=== PATIENT | male | born 1955 | race Caucasian/White ===

== ENCOUNTER 2021-09-29 17:26 | Inpatient (IN) ==
[2021-09-29] MEDS ORDERED: IOPAMIDOL 100 ML BOTTLE IV ONE (17:27)
[2021-09-29] MEDS ORDERED: 0.9 % SODIUM CHLORIDE 1,000 ML IV ONE (17:48)
[2021-09-29] MEDS ORDERED: ONDANSETRON 4 MG/2 ML VIAL IV ONE ×2 (17:48)
[2021-09-29] MEDS ORDERED: FAMOTIDINE/PF 20 MG/2 ML VIAL IV ONE (17:49)
[2021-09-29 18:18] LABS: POC Calcium, Ionized 1.18 (1.16-1.32); POC Creatinine 0.9 (0.6-1.2); POC Potassium 3.9 (3.3-5.1)
--- NOTE | 2021-09-29 18:58 | Cat Scan Report ---
INDICATION: abd pain COMPARISON: None. TECHNIQUE: Axial images were obtained through the abdomen and pelvis. Sagittally and coronally reformatted images. 80 mL Isovue 370 injected intravenously. Oral contrast material was not administered FINDINGS: Lung bases:Bibasilar atelectasis. No parenchymal consolidation. No pulmonary parenchymal mass There is severe coronary artery calcification Liver:Negative. No focal intrahepatic mass. No focal abnormality. Liver contour is smooth. No evidence for cirrhosis Gallbladder, bilary:No calcified gallstones. No gallbladder wall thickening. No dilated intra or extrahepatic bile ducts. Spleen:No splenomegaly. Normal enhancement of splenic and portal veins. Pancreas:No pancreatic mass. No peripancreatic abnormality Adrenal glands:Negative Kidneys,ureters,bladder:No solid renal mass. No hydronephrosis. No obstructing or nonobstructing calculi. 2.2 cm right renal cyst No hydroureter. No ureteral calculus. No bladder stone. No detectable bladder mass. Gastrointestinal:No detectable colonic mass. There is no diverticulitis. Small bowel is dilated and fluid filled. Well-defined transition point is not identified but findings are consistent with small bowel obstruction. Obstruction is probably in the right lower quadrant. There is no evidence for closed loop obstruction. There is no volvulus or mass. Bowel wall is perfused with normal enhancement. Small bowel is dilated to approximately 2.6 cm Dilated fluid-filled stomach. Appendix: The appendix is negative Vascular:There is calcification of the abdominal aorta. Celiac trunk and superior mesenteric artery are normal. No abdominal aortic aneurysm. Lymphatic:No retroperitoneal or mesenteric adenopathy Mesentery, peritoneum: There is mild free intraperitoneal fluid. No intra-abdominal abscess. No pneumoperitoneum. Reproductive:Prostate is not significantly enlarged Musculoskeletal:Severe degenerative disease at L5-S1. No lumbar compression fractures. Sacrum and pelvis are negative. Hips are negative. No inguinal or anterior abdominal wall hernia IMPRESSION: 1. Mechanical small bowel obstruction with dilated fluid-filled small bowel. Site of obstruction appears to be in the right lower quadrant 2. Small amount of free pelvic fluid 3. Severe coronary artery calcification 4. Degenerative disc disease at L5-S1 The exam was performed using radiation dose optimization techniques including, but not limited to, automated exposure control, adjustment of the mA and/or kV according to patient size and use of iterative reconstruction technique. Interpreted and Authenticated by: Francisco Chandra 09/29/21
[2021-09-29 19:16] LABS: Basophils # (Auto) 0.03 K/mcL (0.00-0.30); Basophils % (Auto) 0.3 % (0.0-2.0); Eosinophils # (Auto) 0.07 K/mcL (0.00-0.70); Eosinophils % (Auto) 0.7 % (0.0-7.0); Hematocrit 43.5 % (40.1-51.0); Hemoglobin 14.3 g/dL (13.7-17.5); Lymphocytes # (Auto) 1.82 K/mcL (1.50-4.80); Lymphocytes % (Auto) 18.5 % (15.5-49.0); Mean Cell Volume 90.8 fL (80.0-100.0); Mean Corpuscular HGB Conc 32.9 g/dL (31.0-36.0); Mean Platelet Volume 9.9 fL (7.4-10.4); Monocytes # (Auto) 0.62 K/mcL (0.10-0.90); Monocytes % (Auto) 6.3 % (1.0-12.0); Neutrophils % (Auto) 74.2 % (38.0-78.0); Platelet Count 381 K/mcL (140-440); RBC 4.79 M/mcL (4.63-6.08); Red Cell Distribution Width 13.8 % (11.5-14.5); WBC 9.8 K/mcL (4.5-11.0)
[2021-09-29 19:37] LABS: ALT/SGPT 10 U/L (<40); AST/SGOT 14 U/L (<40); Albumin 4.1 gm/dL (3.2-5.2); Albumin/Globulin Ratio 1.5 (1.0-2.3); Alkaline Phosphatase 76 U/L (39-117); Bilirubin,Total 0.5 mg/dL (0.1-1.0); Blood Urea Nitrogen 14 mg/dL (8-23); Calcium 9.3 mg/dL (8.6-10.4); Carbon Dioxide 22 mmol/L (22-30); Chloride 101 mmol/L (96-108); Globulin 2.7 gm/dL (2.2-3.7); Glomerular Filtration Rate 87; Glucose 127 mg/dL (70-105)
[2021-09-29] MEDS ORDERED: morphine 2 MG/ML VIAL IV PRN (20:15)
[2021-09-29] MEDS ORDERED: NALOXONE HCL 0.4 MG/ML VIAL IV PRN ×2 (20:15→21:05)
[2021-09-29] MEDS ORDERED: LACTATED RINGERS 1,000 ML IV SCH (20:15)
[2021-09-29] MEDS ORDERED: ONDANSETRON 4 MG/2 ML VIAL IV PRN ×2 (20:15→21:05)
--- NOTE | 2021-09-29 21:22 | General Surgery Consult Note ---
HPI Data of Consult Patient: known to practice within the last 3 years Consult date: 09/29/21 Requesting physician: Darien Mccloud Primary Care Provider: Francisco Singletary DO Consult Narrative Patient Information: Note initiated : 09/29/21 at 9:20 pm Service Date, if different from initiated Date: [] Patient: Diony Dodson 66 y/o M admitted on 09/29/21 for Abdominal Pain. Chief Complaint: [Abdominal Pain] Diony is seen in consultation today after presenting to the ER with a less than 24 hour history of intense at times worsening abdominal pain centered in the central mid to upper abdomen. He has not vomited but has been unable to take in food and has had no bowel function since last night. His only prior abdominal operation was an umbilical hernia repair last year. He denies any known history of Crohns or Ulcerative Colitis. He describes his overall health as good and denies any cardiac or pulmonary issues. He is not on any oral anticoagulants. A CT scan was obtained demonstrating evidence of a SB obstruction with SB distension proximally and decompressed SB distally. Additionally, there was scant gas seen in the colon. No other adverse findings were noted. Chief complaint: Abdominal Pain Reason for consult: Small Bowel Obstruction cc:: CC: Courtney Mac MD Review of Systems All systems: reviewed and no additional remarkable complaints except as stated Constitutional Additional comments: no weight loss, fevers or chills EENT Additional comments: no changes Additional comments: no changes Additional comments: no issues Cardiovascular Additional comments: denies any chest pains or cardiac issues Respiratory Additional comments: no cough or SOB Gastrointestinal Additional comments: see HPI Genitourinary Additional comments: denies hemturia Integumentary Additional comments: no changes Neurological Additional comments: no changes PFSH PFSH All Active Problems (Updated 09/29/21 @ 21:37 by Clement Smith MD) SBO (small bowel obstruction) (Acute) Impacted cerumen of both ears (Acute) URI (upper respiratory infection) (Acute) Ingrown left big toenail (Acute) Umbilical hernia (Acute) Medicare annual wellness visit, initial (Acute) Buttock pain (Acute) Back pain (Acute) Exposure to COVID-19 virus (Acute) BPH w urinary obs/LUTS (Chronic) Hordeolum externum (stye) (Acute) Candidiasis of skin (Chronic) Cause of injury, fall (Chronic) Contusion (Chronic) Pain, joint, shoulder, right (Chronic) Right foot pain (Chronic) Chronic low back pain (Chronic) History of high cholesterol (Chronic) History of psoriasis (Chronic) Arthritis of both hands (Chronic ~2004) Arthritis of back (Chronic ~2004) Psoriasis (Chronic ~1999) History of tobacco use (Chronic) Scar tissue (Chronic) Back injury (Chronic) Joint pain (Chronic) Hyperlipidemia (Chronic ~2012) Hypertension, essential (Chronic ~2012) Muscle pain (Chronic) Arthritis (Chronic) Acid reflux (Chronic) Medical History (Updated 09/29/21 @ 21:37 by Clement Smith MD) Acid reflux Arthritis Arthritis of back (~2004) Arthritis of both hands (~2004) Back injury 1988 Candidiasis of skin Cause of injury, fall Chronic low back pain Contusion Exposure to COVID-19 virus History of high cholesterol History of psoriasis History of tobacco use Discussed with patient risk of recurrence with tobacco use. Hyperlipidemia (~2012) Hypertension, essential (~2012) Impacted cerumen of both ears Ingrown left big toenail Joint pain Medicare annual wellness visit, initial Muscle pain Pain, joint, shoulder, right Psoriasis (~1999) Right foot pain Scar tissue 1988 Back injury scar tissue URI (upper respiratory infection) Surgical History (Updated 06/14/20 @ 13:59 by Yoly Gaxiola CMA) H/O colonoscopy 2008 H/O hemorrhoidectomy (~2009) History of umbilical hernia repair 06/07/2020-open Family History Mother Arthritis Hypertension, essential Heart attack Migraines Sister Arthritis Diabetes Hypertension, essential Father Hypertension, essential Stroke Social History marital status: occupational status: employed alcohol intake frequency: a few times a month substance use type: does not use MEDS/ALLERGIES Home Medications and Allergies Home Medications Medication Instructions Recorded Confirmed Type Psoriasis Relief 1 applic/day TOPICAL DAILY 05/31/20 09/29/21 History cholecalciferol (vitamin D3) 25 25 mcg PO QDAY 05/31/20 09/29/21 History mcg (1,000 unit) capsule (Vitamin D3) halobetasol propionate 0.05 % 1 applic TOPICAL QDAY 05/31/20 09/29/21 History topical cream hydrocodone 5 mg-acetaminophen 325 1 tab PO Q6H PRN #20 tab 06/07/20 09/29/21 Rx mg tablet lisinopril 40 mg tablet 40 mg PO QDAY #90 tab 04/13/21 09/29/21 Rx simvastatin 10 mg tablet 10 mg PO QPM #90 tab 04/13/21 09/29/21 Rx amlodipine 10 mg tablet 10 mg PO QDAY #90 tab 07/12/21 09/29/21 Rx brompheniramine 4 mg-PE 10 5 ml PO Q4H PRN #473 ml 08/03/21 09/29/21 Rx mg-codeine 10 mg/5 mL oral liquid (Poly-Tussin AC) tamsulosin 0.4 mg capsule 0.8 mg PO QHS #180 cap 08/23/21 09/29/21 Rx Allergies Allergy/AdvReac Type Severity Reaction Status Date / Time No Known Drug Allergies Allergy Verified 08/03/21 11:07 Physical Examination Vital Signs Vital signs: Temp Pulse Resp BP Pulse Ox 98.1 F 75 18 132/81 94 09/29/21 17:28 09/29/21 20:43 09/29/21 20:01 09/29/21 20:01 09/29/21 20:43 General physical appearance General physical exam: well developed, well nourished and no distress Eyes Eye exam: normal ocular movement ENT ENT exam: normal pinna and normal nares Head Head exam IM: Present atraumatic, normal inspection and normocephalic Neck Neck exam: trachea midline and no lymphadenopathy Cardiovascular Cardiovascular exam IM: Present normal rate and rhythm and RRR Respiratory Respiratory exam: normal respiratory effort Abdomen Abdomen: Present soft (moderate distension, minimally to non tender, NGT in place no ventral or inguinal hernia noted ); Absent rebound Hernia: Present none Integumentary Integumentary: Present other (normal appearing intact skin ) Neurologic Neurologic: Present other (grossly intact ) Psychiatric Psychiatric: Present oriented to time, oriented to person and oriented to place Results Labs Result diagrams: 09/29/21 18:05 09/29/21 18:05 Labs: Abnormal lab results 09/29/21 09/29/21 Range/Units 18:05 18:13 Glucose 127 H (70-105) mg/dL POC Glucose 130 H (70-105) Diabetes panel 09/29/21 Range/Units 18:05 Sodium 138 (133-145) mmol/L Potassium 4.0 (3.3-5.1) mmol/L Chloride 101 (96-108) mmol/L Carbon Dioxide 22 (22-30) mmol/L BUN 14 (8-23) mg/dL Creatinine 0.9 (0.7-1.2) mg/dL Glucose 127 H (70-105) mg/dL Calcium 9.3 (8.6-10.4) mg/dL AST 14 (<40) U/L ALT 10 (<40) U/L Alkaline Phosphatase 76 (39-117) U/L Total Protein 6.8 (5.9-8.4) gm/dL Albumin 4.1 (3.2-5.2) gm/dL Calcium panel 09/29/21 Range/Units 18:05 Calcium 9.3 (8.6-10.4) mg/dL Albumin 4.1 (3.2-5.2) gm/dL Pituitary panel 09/29/21 Range/Units 18:05 Sodium 138 (133-145) mmol/L Potassium 4.0 (3.3-5.1) mmol/L Chloride 101 (96-108) mmol/L Carbon Dioxide 22 (22-30) mmol/L BUN 14 (8-23) mg/dL Creatinine 0.9 (0.7-1.2) mg/dL Glucose 127 H (70-105) mg/dL Calcium 9.3 (8.6-10.4) mg/dL Adrenal panel 09/29/21 Range/Units 18:05 Sodium 138 (133-145) mmol/L Potassium 4.0 (3.3-5.1) mmol/L Chloride 101 (96-108) mmol/L Carbon Dioxide 22 (22-30) mmol/L BUN 14 (8-23) mg/dL Creatinine 0.9 (0.7-1.2) mg/dL Glucose 127 H (70-105) mg/dL Calcium 9.3 (8.6-10.4) mg/dL Total Bilirubin 0.5 (0.1-1.0) mg/dL AST 14 (<40) U/L ALT 10 (<40) U/L Alkaline Phosphatase 76 (39-117) U/L Total Protein 6.8 (5.9-8.4) gm/dL Albumin 4.1 (3.2-5.2) gm/dL All other labs normal. A/P Assessment and plan (1) SBO (small bowel obstruction): Assessment and plan: Small Bowel Obstruction Presumed adhesion related No indications for urgent operative intervention at this time NGT decompression, IVFs, Bowel Rest with in hospital observation Issues are reviewed and discussed at length including possible need for operative intervention if he worsens or fails to improve over time Status: Acute Time Spent With Patient Time: Total time spent is greater than 50% in coordination of care (as documented) at patient's floor/unit and/or counseling patient:
[2021-09-29] MEDS: HYDROmorphone 0.5 MG/0.5 ML SYRINGE IV PRN (22:09)
[2021-09-29] MEDS: DEXTROSE 5%-1/2NS W/20MEQ KCL 1,000 ML IV SCH (22:10)
[2021-09-29] MEDS: 0.9 % SODIUM CHLORIDE 10 ML SYRINGE IV SCH (22:10)
--- NOTE | 2021-09-30 00:36 | Emergency Department Note ---
HPI General Chief complaint: Abdominal Pain Stated complaint: Abdominal Pain Time Seen by Provider: 09/29/21 17:43 Source: patient Mode of arrival: ambulatory Limitations: no limitations History of Present Illness HPI Narrative: Narrative: 66-year-old male with history of hypertension presents for evaluation of epi gastric abdominal pain, ongoing since last night. He describes this as severe cramping in the epigastrium with no radiation. He does report some neck spasms as well as sharp pain stabbing through him. He has been unable to tolerate p.o. but has not had severe nausea or. He has not had bowel movement since prior to the onset of this. He denies any fever or chills. He denies prior abdominal prather rgeries. Denies dysuria or flank pain. Related Data Home Medications Medication Instructions Recorded Confirmed cholecalciferol (vitamin D3) 25 25 mcg PO QDAY 05/31/20 09/29/21 mcg (1,000 unit) capsule (Vitamin D3) halobetasol propionate 0.05 % 1 applic TOPICAL QDAY 05/31/20 09/29/21 topical cream ibuprofen 400 mg tablet 400 mg PO TID 09/29/21 09/29/21 Previous Rx's Medication Instructions Recorded lisinopril 40 mg tablet 40 mg PO QDAY #90 tab 04/13/21 simvastatin 10 mg tablet 10 mg PO QPM #90 tab 04/13/21 amlodipine 10 mg tablet 10 mg PO QDAY #90 tab 07/12/21 tamsulosin 0.4 mg capsule 0.8 mg PO QHS #180 cap 08/23/21 Allergies Allergy/AdvReac Type Severity Reaction Status Date / Time No Known Drug Allergies Allergy Verified 09/29/21 21:52 Review of Systems ROS ROS Narrative: Narrative: All systems ED: reviewed and negative except as stated. [facility] Narrative Patient History Narrative: Narrative: Medical/Surgical/Family History All Active Problems (Updated 09/30/21 @ 00:36 by Darien Mccloud DO) SBO (small bowel obstruction) (Acute) SBO (small bowel obstruction) (Acute) Impacted cerumen of both ears (Acute) URI (upper respiratory infection) (Acute) Ingrown left big toenail (Acute) Umbilical hernia (Acute) Medicare annual wellness visit, initial (Acute) Buttock pain (Acute) Back pain (Acute) Exposure to COVID-19 virus (Acute) BPH w urinary obs/LUTS (Chronic) Hordeolum externum (stye) (Acute) Candidiasis of skin (Chronic) Cause of injury, fall (Chronic) Contusion (Chronic) Pain, joint, shoulder, right (Chronic) Right foot pain (Chronic) Chronic low back pain (Chronic) History of high cholesterol (Chronic) History of psoriasis (Chronic) Arthritis of both hands (Chronic ~2004) Arthritis of back (Chronic ~2004) Psoriasis (Chronic ~1999) History of tobacco use (Chronic) Scar tissue (Chronic) Back injury (Chronic) Joint pain (Chronic) Hyperlipidemia (Chronic ~2012) Hypertension, essential (Chronic ~2012) Muscle pain (Chronic) Arthritis (Chronic) Acid reflux (Chronic) Medical History Acid reflux Arthritis Arthritis of back (~2004) Arthritis of both hands (~2004) Back injury 1988 Candidiasis of skin Cause of injury, fall Chronic low back pain Contusion Exposure to COVID-19 virus History of high cholesterol History of psoriasis History of tobacco use Discussed with patient risk of recurrence with tobacco use. Hyperlipidemia (~2012) Hypertension, essential (~2012) Impacted cerumen of both ears Ingrown left big toenail Joint pain Medicare annual wellness visit, initial Muscle pain Pain, joint, shoulder, right Psoriasis (~1999) Right foot pain Scar tissue 1988 Back injury scar tissue URI (upper respiratory infection) Surgical History H/O colonoscopy 2008 H/O hemorrhoidectomy (~2009) History of umbilical hernia repair 06/07/2020-open Family History Mother Arthritis Hypertension, essential Heart attack Migraines Sister Arthritis Diabetes Hypertension, essential Father Hypertension, essential Stroke Social History Smoking Status: Former smoker Alcohol Intake Frequency: a few times a month Substance Use: does not use Exam Narrative Narrative: Narrative: General Limitations: no limitations General appearance: Present alert and in no apparent distress Head Head: Present atraumatic and normocephalic Eye Eye: Present normal appearance and EOMI ENT ENT: Present normal exam and mucous membranes moist Neck Neck: Present normal inspection and full ROM Chest Chest: Present normal inspection and symmetric chest wall rise Respiratory Respiratory: Present normal lung sounds bilaterally; Absent respiratory distress Cardiovascular Cardiovascular: Present regular rate and normal rhythm Adbominal Abdominal: Present soft and tenderness (Mild epigastric tenderness with no guarding or rebound.) Extremities Extremities: Present normal inspection and full ROM Neurological Neurological: Present alert, oriented X3 and normal gait Psychiatric Psychiatric: Present normal affect and normal mood Skin Skin: Present warm (WNL), dry and normal color Course Vital Signs Vital signs: Vital Signs Temperature 98.1 F 09/29/21 17:28 Pulse Rate 74 09/29/21 17:28 Respiratory Rate 18 09/29/21 17:28 Blood Pressure 143/88 09/29/21 17:28 Pulse Oximetry (%) 98 09/29/21 17:28 Temperature 96.9 F L 09/29/21 21:03 Pulse Rate 82 09/29/21 21:03 Respiratory Rate 22 09/29/21 21:03 Blood Pressure 164/95 09/29/21 21:03 Pulse Oximetry (%) 92 09/29/21 21:03 MDM MDM Narrative Medical decision making narrative: Narrative: Patient found to have small bowel obstruction, NG tube placed and case discussed with surgery, Dr. Smith who accepts to his service. No clear etiology. Patient does get routine colonoscopies Lab Data Lab results reviewed: Yes I reviewed the patient's lab results. Result diagrams: 09/29/21 18:05 09/29/21 18:05 Labs: Lab Results 09/29/21 09/29/21 09/29/21 Range/Units 18:05 18:05 18:11 WBC 9.8 (4.5-11.0) K/mcL RBC 4.79 (4.63-6.08) M/mcL Hgb 14.3 (13.7-17.5) g/dL Hct 43.5 (40.1-51.0) % POC Hct (41-55) MCV 90.8 (80.0-100.0) fL MCH 29.9 (26.0-34.0) pg MCHC 32.9 (31.0-36.0) g/dL RDW 13.8 (11.5-14.5) % Plt Count 381 (140-440) K/mcL MPV 9.9 (7.4-10.4) fL Neut % (Auto) 74.2 (38.0-78.0) % Lymph % (Auto) 18.5 (15.5-49.0) % Custer % (Auto) 6.3 (1.0-12.0) % Eos % (Auto) 0.7 (0.0-7.0) % Baso % (Auto) 0.3 (0.0-2.0) % Lymph # (Auto) 1.82 (1.50-4.80) K/mcL Custer # (Auto) 0.62 (0.10-0.90) K/mcL Eos # (Auto) 0.07 (0.00-0.70) K/mcL Baso # (Auto) 0.03 (0.00-0.30) K/mcL Absolute Neutrophils 7.29 (1.80-8.00) K/mcL POC Sodium (133-145) Sodium 138 (133-145) mmol/L POC Potassium (3.3-5.1) Potassium 4.0 (3.3-5.1) mmol/L POC Chloride (96-108) Chloride 101 (96-108) mmol/L Carbon Dioxide 22 (22-30) mmol/L POC Total CO2 (22-30) Anion Gap 15.0 (8.0-16.0) POC BUN (6-20) BUN 14 (8-23) mg/dL Creatinine 0.9 (0.7-1.2) mg/dL POC Creatinine (0.6-1.2) GFR Calculation 87 Glucose 127 H (70-105) mg/dL POC Glucose (70-105) Calcium 9.3 (8.6-10.4) mg/dL POC WB Ioniz Calcium (1.16-1.32) Total Bilirubin 0.5 (0.1-1.0) mg/dL AST 14 (<40) U/L ALT 10 (<40) U/L Alkaline Phosphatase 76 (39-117) U/L Total Protein 6.8 (5.9-8.4) gm/dL Albumin 4.1 (3.2-5.2) gm/dL Globulin 2.7 (2.2-3.7) gm/dL Albumin/Globulin Ratio 1.5 (1.0-2.3) Lipase 31 (7-60) U/L POC Troponin I 0.02 (0.02-0.08) 09/29/21 Range/Units 18:13 WBC (4.5-11.0) K/mcL RBC (4.63-6.08) M/mcL Hgb (13.7-17.5) g/dL Hct (40.1-51.0) % POC Hct 44.0 (41-55) MCV (80.0-100.0) fL MCH (26.0-34.0) pg MCHC (31.0-36.0) g/dL RDW (11.5-14.5) % Plt Count (140-440) K/mcL MPV (7.4-10.4) fL Neut % (Auto) (38.0-78.0) % Lymph % (Auto) (15.5-49.0) % Custer % (Auto) (1.0-12.0) % Eos % (Auto) (0.0-7.0) % Baso % (Auto) (0.0-2.0) % Lymph # (Auto) (1.50-4.80) K/mcL Custer # (Auto) (0.10-0.90) K/mcL Eos # (Auto) (0.00-0.70) K/mcL Baso # (Auto) (0.00-0.30) K/mcL Absolute Neutrophils (1.80-8.00) K/mcL POC Sodium 139 (133-145) Sodium (133-145) mmol/L POC Potassium 3.9 (3.3-5.1) Potassium (3.3-5.1) mmol/L POC Chloride 105 (96-108) Chloride (96-108) mmol/L Carbon Dioxide (22-30) mmol/L POC Total CO2 24.0 (22-30) Anion Gap (8.0-16.0) POC BUN 17 (6-20) BUN (8-23) mg/dL Creatinine (0.7-1.2) mg/dL POC Creatinine 0.9 (0.6-1.2) GFR Calculation Glucose (70-105) mg/dL POC Glucose 130 H (70-105) Calcium (8.6-10.4) mg/dL POC WB Ioniz Calcium 1.18 (1.16-1.32) Total Bilirubin (0.1-1.0) mg/dL AST (<40) U/L ALT (<40) U/L Alkaline Phosphatase (39-117) U/L Total Protein (5.9-8.4) gm/dL Albumin (3.2-5.2) gm/dL Globulin (2.2-3.7) gm/dL Albumin/Globulin Ratio (1.0-2.3) Lipase (7-60) U/L POC Troponin I (0.02-0.08) Radiology Data Radiology results reviewed: Yes I reviewed the patient's radiology results. EKG Data EKG #1: EKG attestation: Yes I reviewed and interpreted this EKG. EKG results narrative: Sinus rhythm at a rate of 63. Left axis. QTC 397. Inferior Q waves. No acute ST-T changes. Abnormal but nonacute EKG. Discharge Plan Patient/Caregiver Discharge Instructions Pt seen by HOUSEPERSON/PA only: No Clinical Impression: SBO (small bowel obstruction) Patient Disposition: Xfer As Inpt ([facility]) Discharge Date/Time: 09/29/21 21:03
[2021-09-30] MEDS: HYDROmorphone 0.5 MG/0.5 ML SYRINGE IV PRN ×4 (01:45→21:01)
--- NOTE | 2021-09-30 05:37 | XRay Report ---
INDICATION: NG placement TECHNIQUE: Supine abdomen. COMPARISON: Previous CT scan dated 09/29/2021 FINDINGS:Esophagogastric tube is in the stomach. The tip is curled cephalad into the gastric fundus. IMPRESSION: Esophagogastric tube in the stomach Interpreted and Authenticated by: Francisco Chandra 09/30/21
[2021-09-30] MEDS: DEXTROSE 5%-1/2NS W/20MEQ KCL 1,000 ML IV SCH ×3 (05:56→21:00)
[2021-09-30] MEDS: 0.9 % SODIUM CHLORIDE 10 ML SYRINGE IV SCH ×3 (05:56→21:02)
[2021-09-30 06:56] LABS: Hematocrit 39.3 % (40.1-51.0); Hemoglobin 12.9 g/dL (13.7-17.5); Mean Cell Volume 92.7 fL (80.0-100.0); Mean Corpuscular HGB Conc 32.8 g/dL (31.0-36.0); Mean Platelet Volume 9.8 fL (7.4-10.4); Platelet Count 339 K/mcL (140-440); RBC 4.24 M/mcL (4.63-6.08); Red Cell Distribution Width 13.9 % (11.5-14.5); WBC 9.2 K/mcL (4.5-11.0)
[2021-09-30 07:26] LABS: Blood Urea Nitrogen 13 mg/dL (8-23); Calcium 8.5 mg/dL (8.6-10.4); Carbon Dioxide 23 mmol/L (22-30); Chloride 104 mmol/L (96-108); Glomerular Filtration Rate 91; Glucose 149 mg/dL (70-105)
[2021-09-30] MEDS ORDERED: DOCUSATE SODIUM 100 MG CAPSULE PO SCH (09:00)
[2021-09-30] MEDS: BENZOCAINE 1 SPRAY BOTTLE TOPICAL PRN ×3 (09:26→21:02)
--- NOTE | 2021-09-30 10:34 | General Surgery Progress Note ---
SUBJECTIVE Subjective Patient information: Note initiated : 09/30/21 at 10:31 am Service Date, if different from initiated Date: [] Patient: Diony Dodson 66 y/o M admitted on 09/29/21 for Abdominal Pain. Chief Complaint: [] Constitutional Vitals: Vital Signs Temp Pulse Resp BP Pulse Ox 97.1 F 59 L 16 122/77 94 09/30/21 07:45 09/30/21 07:45 09/30/21 07:45 09/30/21 07:45 09/30/21 07:45 Period Temp Pulse Resp BP Sys/Treviño Pulse Ox Last 24 Hr 96.9 F-98.4 F 59-82 - 122-164/74-106 92-98 Intake and Output 09/29/21 09/30/21 09/30/21 21:59 05:59 13:59 Intake Total 1000 971 Output Total 300 250 825 Balance 700 721 -825 Weight 181 lb 4.8 oz 181 lb 4.8 oz Intake & Output: Intake & Output 09/29/21 09/30/21 09/30/21 21:59 05:59 13:59 Intake Total 1000 971 Output Total 300 250 825 Balance 700 721 -825 Weight 181 lb 4.8 oz 181 lb 4.8 oz Intake: IV 1000 971 Sodium Chloride 0.9% 1,000 ml @ 1000 Wide Open IV BOLUS ONE Rx#: [id number] Dextrose 5%-1/2Ns W/20Meq KCl 1 971 ,000 ml @ 125 mls/hr IV .Q8H CUONG Rx#:[id number] Tube Feeding 0 Output: Gastric Drainage 300 350 Left Nare 300 350 Void Amount 250 200 Urine/Stool Mix 275 Other: Urine Appearance Clear Clear Urine Color Bright Yellow Bright Yellow Stool Color Brown Brown Stool Consistency Normal for Patient Formed Formed # Bowel Movements 0 Exam: Non toxic, NAD, feels better overall with minimal to no pain at rest - has passed some gas this am Respiratory Respiratory exam: Present normal respiratory exam Additional comments: non labored Cardiovascular Cardiovascular exam: Present RRR GI/Abdominal Additional comments: soft and non tender, less distension overall. NGT in place Extremities Exam Additional comments: well perfused A/P Assessment and plan (1) SBO (small bowel obstruction): Assessment and plan: Presumed adhesion related SBO Seems to be improving Check plain films this am to reassess NGT position Continue present mgmt for now - anticipate SBFT on Saturday Status: Acute Time Spent With Patient Time: Total time spent is greater than 50% in coordination of care (as documented) at patient's floor/unit and/or counseling patient:
--- NOTE | 2021-09-30 11:10 | XRay Report ---
INDICATION: eval NGT position TECHNIQUE: Supine abdomen. COMPARISON: Previous examination dated 09/29/2021 FINDINGS:Esophagogastric tube with its tip in the gastric fundus. Configuration is slightly changed although the position is probably unchanged. There is gas within the colon. No dilated gas-filled small bowel. No biliary or portal venous gas. No pneumoperitoneum IMPRESSION: Esophagogastric tube remains in the stomach Interpreted and Authenticated by: Francisco Chandra 09/30/21
[2021-09-30] MEDS ORDERED: SENNOSIDES 1 TABLET PO SCH (21:00)
[2021-10-01] MEDS: HYDROmorphone 0.5 MG/0.5 ML SYRINGE IV PRN ×2 (01:10→05:45)
[2021-10-01] MEDS: DEXTROSE 5%-1/2NS W/20MEQ KCL 1,000 ML IV SCH ×3 (04:17→19:42)
[2021-10-01] MEDS: 0.9 % SODIUM CHLORIDE 10 ML SYRINGE IV SCH ×3 (04:18→21:17)
[2021-10-01 06:04] LABS: Hematocrit 38.8 % (40.1-51.0); Hemoglobin 12.9 g/dL (13.7-17.5); Mean Cell Volume 91.3 fL (80.0-100.0); Mean Corpuscular HGB Conc 33.2 g/dL (31.0-36.0); Mean Platelet Volume 9.7 fL (7.4-10.4); Platelet Count 340 K/mcL (140-440); RBC 4.25 M/mcL (4.63-6.08); Red Cell Distribution Width 13.7 % (11.5-14.5); WBC 12.3 K/mcL (4.5-11.0)
[2021-10-01 06:29] LABS: Blood Urea Nitrogen 9 mg/dL (8-23); Calcium 8.8 mg/dL (8.6-10.4); Carbon Dioxide 27 mmol/L (22-30); Chloride 104 mmol/L (96-108); Glomerular Filtration Rate 87; Glucose 132 mg/dL (70-105)
--- NOTE | 2021-10-01 10:08 | XRay Report ---
INDICATION: Eval SBO TECHNIQUE: Supine and upright abdomen. COMPARISON: Previous plain film examination dated 09/30/2021. Previous CT scan dated 09/29/2021 FINDINGS:No change in position of esophagogastric tube. There is gas throughout the colon. There is some small bowel gas. Jejunum measures approximately 2.5 cm in diameter. No pneumatosis. No biliary or portal venous gas. There is no focal abnormality IMPRESSION: Nonspecific bowel gas pattern as above Interpreted and Authenticated by: Francisco Chandra 10/01/21
--- NOTE | 2021-10-01 12:00 | General Surgery Progress Note ---
SUBJECTIVE Subjective Patient information: Note initiated : 10/01/21 at 11:57 am Service Date, if different from initiated Date: [] Patient: Diony Dodson 66 y/o M admitted on 09/29/21 for Abdominal Pain. Chief Complaint: [] Continues to feel improved and feels his pain is dramatically diminished. Passing some gas and had a stool yesterday Constitutional Vitals: Vital Signs Temp Pulse Resp BP Pulse Ox 97.1 F 63 16 135/71 95 10/01/21 07:37 10/01/21 07:37 10/01/21 07:37 10/01/21 07:37 10/01/21 07:37 Period Temp Pulse Resp BP Sys/Treviño Pulse Ox Last 24 Hr 97.1 F-99.2 F 59-71 - 122-135/71-81 94-97 Intake and Output 09/30/21 10/01/21 10/01/21 21:59 05:59 13:59 Intake Total 917 910 Output Total 2049 975 300 Balance -1133 -65 -300 Weight 181 lb 3.2 oz Intake & Output: Intake & Output 09/30/21 10/01/21 10/01/21 21:59 05:59 13:59 Intake Total 917 910 Output Total 2049 975 300 Balance -1133 -65 -300 Weight 181 lb 3.2 oz Intake: IV 917 910 Dextrose 5%-1/2Ns W/20Meq KCl 1 917 910 ,000 ml @ 125 mls/hr IV .Q8H [facility] Rx#:[id number] Output: Gastric Drainage 300 425 Left Nare 300 425 Void Amount 1750 550 300 Other: Urine Appearance Clear Clear Clear Urine Color Bright Yellow Bright Yellow Bright Yellow Urine Odor Normal # Voids 2 General appearance: no acute distress Exam: looks well Respiratory Respiratory exam: Present normal respiratory exam Cardiovascular Cardiovascular exam: Present normal rate and rhythm GI/Abdominal Additional comments: belly seems soft and non tender, non distended, NGT in place Extremities Exam Additional comments: well perfused A/P Assessment and plan (1) SBO (small bowel obstruction): Assessment and plan: Resolving SBO Continue current mgmt Check SBFT tomorrow via NGT and if good then start diet and likely home Status: Acute Time Spent With Patient Time: Total time spent is greater than 50% in coordination of care (as documented) at patient's floor/unit and/or counseling patient:
[2021-10-01] MEDS: SIMVASTATIN 10 MG TABLET PO SCH (21:17)
[2021-10-01] MEDS: TAMSULOSIN 0.4 MG CAPSULE PO SCH (21:17)
[2021-10-02] MEDS: DEXTROSE 5%-1/2NS W/20MEQ KCL 1,000 ML IV SCH ×3 (03:23→12:15)
[2021-10-02 06:14] LABS: Hemoglobin 13.4 g/dL (13.7-17.5); Mean Cell Volume 90.7 fL (80.0-100.0); Mean Corpuscular HGB Conc 33.5 g/dL (31.0-36.0); Mean Platelet Volume 9.8 fL (7.4-10.4); Platelet Count 349 K/mcL (140-440); RBC 4.41 M/mcL (4.63-6.08); Red Cell Distribution Width 13.5 % (11.5-14.5); WBC 16.4 K/mcL (4.5-11.0)
[2021-10-02] MEDS: 0.9 % SODIUM CHLORIDE 10 ML SYRINGE IV SCH ×3 (06:47→21:02)
[2021-10-02] MEDS: PIPERACILLIN SODIUM/TAZOBACTAM 3.375 GM in DEXTROSE 5% IN WATER 50 ML IV SCH ×4 (09:24→23:26)
--- NOTE | 2021-10-02 10:12 | XRay Report ---
CLINICAL INFORMATION: Abdominal pain and distention. Possible small bowel obstruction COMPARISON: None. TECHNIQUE: Water-soluble contrast was infused through the indwelling NG tube and serial imaging was obtained over the abdomen and pelvis for 60 minutes. FINDINGS: The stomach is normal in contour and normal rugal folds. Duodenum, jejunum and ileum are also normal in contour and caliber with thin uniform plica circulares folds. Small bowel transit time is approximately 40 minutes. IMPRESSION: Normal small bowel follow-through. No evidence of small bowel obstruction Interpreted and Authenticated by: Francisco Mancilla 10/02/21
[2021-10-02] MEDS ORDERED: PANTOPRAZOLE 40 MG TABLET PO ONE (10:25)
[2021-10-02] MEDS: HYDROmorphone 0.5 MG/0.5 ML SYRINGE IV PRN (10:55)
--- NOTE | 2021-10-02 15:38 | EKG ---
[facility] Test Date: 2021-09-29 Pat Name: Diony Dodson Department: ED Room: Gender: Male Gut Carrier: MELONIE : 1955 Requested By: Darien Mccloud Order Number: [id number] Reading MD: Jett Miller Measurements Intervals [place] Rate: 63 P: 4 [place]: 125 QRS: -44 QRSD: 94 T: 42 QT: 387 QTc: 397 Interpretive Statements Sinus rhythm Left axis deviation Borderline low voltage, extremity leads Abnormal R-wave progression, early transition Electronically Signed On 10-02-2021 15:37:49 PDT by Jett Miller /[email or web address]/[id number]/[id number]
[2021-10-02] MEDS: TAMSULOSIN 0.4 MG CAPSULE PO SCH (21:02)
[2021-10-02] MEDS: SIMVASTATIN 10 MG TABLET PO SCH (21:02)
[2021-10-03] MEDS: DEXTROSE 5%-1/2NS W/20MEQ KCL 1,000 ML IV SCH (02:38)
[2021-10-03] MEDS: PIPERACILLIN SODIUM/TAZOBACTAM 3.375 GM in DEXTROSE 5% IN WATER 50 ML IV SCH ×2 (06:26→11:38)
[2021-10-03] MEDS: 0.9 % SODIUM CHLORIDE 10 ML SYRINGE IV SCH (06:27)
[2021-10-03 07:46] LABS: Hematocrit 39.9 % (40.1-51.0); Hemoglobin 13.1 g/dL (13.7-17.5); Mean Cell Volume 92.4 fL (80.0-100.0); Mean Corpuscular HGB Conc 32.8 g/dL (31.0-36.0); Mean Platelet Volume 9.9 fL (7.4-10.4); Platelet Count 358 K/mcL (140-440); RBC 4.32 M/mcL (4.63-6.08); Red Cell Distribution Width 13.4 % (11.5-14.5)
[2021-10-03 07:53] LABS: Blood Urea Nitrogen 10 mg/dL (8-23); Calcium 9.3 mg/dL (8.6-10.4); Carbon Dioxide 28 mmol/L (22-30); Chloride 102 mmol/L (96-108); Glomerular Filtration Rate 62; Glucose 103 mg/dL (70-105)
--- NOTE | 2021-10-03 13:27 | General Surgery Progress Note ---
SUBJECTIVE Subjective Patient information: Note initiated : 10/03/21 at 1:24 pm Service Date, if different from initiated Date: [] Patient: Diony Dodson 66 y/o M admitted on 09/29/21 for Abdominal Pain. Chief Complaint: [] Doing well, feels back to baseline, tolerating a diet, hoping to go home today Constitutional Vitals: Vital Signs Temp Pulse Resp BP Pulse Ox 97.6 F 66 16 126/80 95 10/03/21 11:49 10/03/21 11:49 10/03/21 11:49 10/03/21 11:49 10/03/21 11:49 Period Temp Pulse Resp BP Sys/Treviño Pulse Ox Last 24 Hr 97.6 F-98.7 F 61-67 16-20 104-126/65-80 94-97 Intake and Output 10/02/21 10/03/21 10/03/21 21:59 05:59 13:59 Intake Total 650 1200 1192 Output Total 575 Balance 009 063 6370 Weight 166 lb 14.4 oz Intake & Output: Intake & Output 10/02/21 10/03/21 10/03/21 21:59 05:59 13:59 Intake Total 650 1200 1192 Output Total 575 Balance 601 400 2218 Weight 166 lb 14.4 oz Intake: IV 50 1050 672 Dextrose 5%-1/2Ns W/20Meq KCl 1 1000 572 ,000 ml @ 75 mls/hr IV .[id number] [facility] Rx#:[id number] Zosyn 3.375 gm In Dextrose 5% 50 50 100 in Water 50 ml @ 100 mls/hr IV Q6H [facility] Rx#:[id number] Oral 600 150 520 Output: Urine/Stool Mix 400 Stool 175 Other: Meal Lunch Percent of Meal Consumed 100% Urine Appearance Clear Urine Color Bright Yellow Stool Color Blood Tinged Yellow Stool Consistency Loose Liquid Watery Loose # Voids 3 3 # Bowel Movements 3 3 Exam: looks well, NAD GI/Abdominal Additional comments: soft and non tender, baseline truncal protuberance A/P Narrative A/P Narrative: SBO Clinically and Radiographically Resolved Home today Clinic follow up in 1-2 weeks, sooner if need be Contact info provided with instruction to seek care or return to ER for any recurrence of presenting symptoms Time Spent With Patient Time: Total time spent is greater than 50% in coordination of care (as documented) at patient's floor/unit and/or counseling patient:
--- NOTE | 2021-10-03 20:20 | General Surgery Progress Note ---
SUBJECTIVE Subjective Patient information: Note initiated : 10/02/21 at 1130 am Service Date, if different from initiated Date: [] Patient: Diony Dodson 66 y/o M admitted on 09/29/21 for Abdominal Pain. Chief Complaint: [] Doing well, feels much improved overall. Had SBFT today and no evidence seen of residual obstruction Constitutional Vitals: Vital Signs Temp Pulse Resp BP Pulse Ox 97.6 F 61 18 127/82 97 10/03/21 14:53 10/03/21 14:53 10/03/21 14:53 10/03/21 14:53 10/03/21 14:53 Period Temp Pulse Resp BP Sys/Treviño Pulse Ox Last 24 Hr 97.6 F-98.7 F 61-67 16-20 104-127/65-82 94-97 Intake and Output 10/03/21 10/03/21 10/03/21 05:59 13:59 21:59 Intake Total 1200 1192 Output Total 575 Balance 625 1192 Intake & Output: Intake & Output 10/03/21 10/03/21 10/03/21 05:59 13:59 21:59 Intake Total 1200 1192 Output Total 575 Balance 625 1192 Intake: IV 1050 672 Dextrose 5%-1/2Ns W/20Meq KCl 1 1000 572 ,000 ml @ 75 mls/hr IV .[id number] [facility] Rx#:[id number] Zosyn 3.375 gm In Dextrose 5% 50 100 in Water 50 ml @ 100 mls/hr IV Q6H [facility] Rx#:[id number] Oral 150 520 Output: Urine/Stool Mix 400 Stool 175 Other: Meal Lunch Percent of Meal Consumed 100% Urine Appearance Clear Urine Color Bright Yellow Stool Color Yellow Stool Consistency Liquid Watery Loose # Voids 3 # Bowel Movements 3 Exam: looks well, nontoxic Respiratory Additional comments: Non labored, no distress Cardiovascular Cardiovascular exam: Present RRR GI/Abdominal Additional comments: soft and non tender, non distended, no tenderness A/P Assessment and plan (1) SBO (small bowel obstruction): Assessment and plan: Resolved SBO Doing Well Normal SBFT D/C NGT and start orals Likely home tomorrow ? elevated WBC and low grade temps - will cover with empiric antibiotics Status: Acute Time Spent With Patient Time: Total time spent is greater than 50% in coordination of care (as documented) at patient's floor/unit and/or counseling patient:
--- NOTE | 2021-10-04 08:17 | Discharge Summary ---
DATE OF ADMISSION: 09/29/2021 DATE OF DISCHARGE: 10/03/2021 DATE OF DISCHARGE: 10/03/2021 ADMITTING PHYSICIAN: Clement Smith MD ADMITTING DIAGNOSIS: Small bowel obstruction. DISCHARGE DIAGNOSIS: Small bowel obstruction, resolved. INDICATIONS FOR ADMISSION/HOSPITAL COURSE: The patient is a 66-year-old male who presented to the Emergency Room on 09/29/2021 with increasing abdominal pain that had been present for up to 24-36 hours along with failure to pass gas and stool, increasing abdominal distention, pain, and discomfort. He was seen in the Emergency Room and a CT scan was obtained, which demonstrated findings consistent with small bowel obstruction. We were asked to see him in consultation. We saw him and felt that he had no operative indications at that time, but needed to be admitted for observational management for what was, at that point, presumed adhesive related small bowel obstruction. An NG tube, he was admitted to the hospital and managed conservatively with IV fluids and pain control along with bowel rest. He improved within the first 24-48 hours and began to pass gas, and his x-rays normalized. On 10/02/2021 we obtained a small bowel follow through, which demonstrated prompt passage of contrast across the small bowel and into the colon. His NG tube was removed, he was started on a diet and by today, 10/03/2021 he was felt ready for discharge. Also of note, he had a white count that continued to increase over the past couple days of his admission. Etiology of this was not clear, and along with that he had some low-grade temps so I elected to start him on some antibiotics. He was started on IV Zosyn in the hospital and discharged on oral Augmentin. DISPOSITION: Home with clinic followup. IN-HOSPITAL PROCEDURES: Small bowel follow through on 10/02/2021. BW:oriana Job ID: [id number] Doc ID: [id number] Clement Smith M.D.
== END 2021-10-03 14:38 | disposition home or self-care (01) | DRG 390 ==
LOC: ED 17:26 → MEDSUR 21:03
PROVIDERS: ADMIT Student in an Organized Health Care Education/Training Program; ATTEND Surgery Surgical Critical Care